=== PATIENT | male | born 1950 | race Hispanic/Latino ===

== ENCOUNTER → 2017-11-20 | Outpatient (CLI) | payer BC ==
[~2017-11-20] MED LIST: IOPAMIDOL 370 MG/ML 200 ML INFUS..BTL INJ ONE; SODIUM CHLORIDE 0.9% 50ML 50 ML ONE
[2017-11-20 17:57] LABS: BLOOD UREA NITROGEN 15 mg/dL (7-26); BUN/CREATININE RATIO 22 (6-25); CREATININE, SERUM 0.69 mg/dL (0.72-1.25); EST GLOMERULAR FILTRATION RATE > 60 ML/MIN (60-)
--- NOTE | 2017-11-20 18:52 | Diagnostic Imaging Report ---
PROCEDURE:CT PELVIS WITH CONTRAST COMPARISON:None. INDICATIONS:UNCERTAIN BEHAVIOR OF PROSTATE TECHNIQUE:CT of the pelvis was performed from the iliac crest through the proximal femurs after the intravenous administration of 100 cc of contrast. DLP: 298.28 mGY-cm FINDINGS: Prostate Gland: Measures 6.6 x 6.8 x 8.0 cm. It is heterogeneous in enhancement. No discrete mass. The median lobe is hypertrophied. No calcifications. Seminal Vesicles: Normal in morphology. Bladder: Mild bladder wall thickening without mass. No intraluminal calculi. Ureters: Distal ureters are collapsed. Pelvic Nodes:No lymphadenopathy Bowel:Visualized bowel is normal in diameter with normal wall thickness. Vessels: Mild ectasia of the iliac arteries without aneurysmal dilatation. No atherosclerotic calcifications. Bones:Mild degenerative changes of the hips. Mild to moderate degenerative changes of the lower lumbar spine. No lytic or blastic lesions. Soft tissues: Unremarkable. CONCLUSION: 1. Marked BPH. Pelvic MRI is a more sensitive modality to identify any suspicious prostate lesions. 2. Mild bladder wall thickening suggestive of outlet obstruction. 3. No pelvic lymphadenopathy. Dictated by: Sienna Ny M.D. on 11/20/2017 at 18:53 Electronically approved by: Sienna Ny M.D. on 11/20/2017 at 18:53
== END ==
LOC: CT 17:05
PROVIDERS: ATTEND Urology
DX: D40.0 Neoplasm of uncertain behavior of prostate (principal); R97.20 Elevated prostate specific antigen [PSA]
CPT/HCPCS: 36415; 72193; 82565; 84520; Q9967

== ENCOUNTER → 2017-11-23 | Outpatient (CLI) | payer BC ==
--- NOTE | 2017-11-23 19:02 | Diagnostic Imaging Report ---
Bone Scan, delayed phase INDICATION: 67 M with uncertain behavior of prostate, BPH and elevated PSA. COMPARISON: CT pelvis 11/20/2017 REPORT: Approximately 3 hours following intravenous administration of 27 mCi of Tc-99m MDP, delayed total body images in the anterior and posterior projections and selected spot images were obtained. Mildly increased tracer is seen at cervicothoracic junction and diffusely throughout the mid to lower thoracic spine, consistent with degenerative change. Foci of mildly increased tracer is seen in L4 and L5/S1 bilaterally. Otherwise, distribution of tracer activity is unremarkable throughout the skeletal system. No abnormal accumulation of tracer is seen in the soft tissues or urinary tract. The patient did not completely empty his bladder on void prior to imaging. IMPRESSION: No scan evidence of metastatic bone disease. Signed by: Dr. Ladi Ho M.D. on 11/23/2017 6:58 PM
== END ==
LOC: NM 09:41
PROVIDERS: ATTEND Urology
DX: D40.0 Neoplasm of uncertain behavior of prostate (principal)
CPT/HCPCS: 78306; A9503

== ENCOUNTER 2021-10-25 14:20 | Observation (INO) | payer MEDICARE ==
[~2021-10-25] VITALS: Ht 170.2 cm; Wt 81.6 kg
[2021-10-25] MEDS ORDERED: SODIUM CHLORIDE 0.9% 500ML 500 ML IV ONE (14:45)
[2021-10-25 14:56] LABS: BASOPHILS % 0.3 % (0.0-1.0); EOSINOPHILS # (AUTO) 0.2 (0.0-0.4); EOSINOPHILS % 3.3 % (0.0-6.0); HEMATOCRIT 41.8 % (38.2-49.6); HEMOGLOBIN 14.2 g/dL (14.0-18.0); LYMPHOCYTES # (AUTO) 1.3 (1.0-3.2); LYMPHOCYTES % 18.5 % (18.0-39.1); MEAN CORPUSCULAR HEMOGLOBIN 28.8 pg (28-32); MEAN CORPUSCULAR VOLUME 84.8 fL (81-99); MONOCYTES # (AUTO) 0.5 (0.2-0.8); MONOCYTES % 6.9 % (4.4-11.3); NEUTROPHILS # (AUTO) 4.9 (2.1-6.9); NEUTROPHILS % 70.7 % (38.7-80.0); PLATELET COUNT 196 x10e3/uL (140-360); RED BLOOD COUNT 4.93 x10e6/uL (4.3-5.7); RED CELL DISTRIBUTION WIDTH 12.9 % (11.7-14.4)
[2021-10-25 15:01] LABS: CLARITY,URINE CLEAR (CLEAR); COLOR,URINE YELLOW (YELLOW); KETONES,URINE NEGATIVE (NEGATIVE); LEUKOCYTE ESTERASE ,URINE NEGATIVE (NEGATIVE); NITRITE,URINE NEGATIVE (NEGATIVE); PROTEIN,URINE DIPSTICK NEGATIVE (NEGATIVE); URINE UROBILINOGEN 1 mg/dL (0.2 - 1)
[2021-10-25 15:13] LABS: INR 0.97; PROTHROMBIN TIME 13.8 seconds (11.9-14.5)
[2021-10-25 15:14] LABS: AMORPHOUS SEDIMENT,URINE FEW (FEW); BACTERIA,URINE RARE /HPF; PARTIAL THROMBOPLASTIN TIME 34.8 seconds (23.8-35.5)
[2021-10-25 15:16] LABS: ALBUMIN 3.8 g/dL (3.5-5.0); ALBUMIN/GLOBULIN RATIO 1.2 (0.8-2.0); ANION GAP 11.3 mmol/L (8-16); CALCIUM 9.6 mg/dL (8.4-10.2); CREATININE, SERUM 0.71 mg/dL (0.72-1.25); MAGNESIUM 1.6 MG/DL (1.3-2.1); POTASSIUM 3.3 mmol/L (3.5-5.1)
[2021-10-25] MEDS ORDERED: POTASSIUM CHLORIDE 20 MEQ TAB CR PO STA (15:20)
[2021-10-25] MEDS ORDERED: ASPIRIN 81 MG CHEW TAB PO ONE (15:30)
[2021-10-25 15:35] LABS: CREATINE KINASE MB 2.5 ng/mL (0-5.0); THYROID STIMULATING HORMONE 1.346 uIU/mL (0.350-4.940)
[2021-10-25] MEDS ORDERED: ONDANSETRON HCL INJ 2MG/ML 2ML 2 MG/ML VIAL IV PRN ×2 (15:45→18:00)
[2021-10-25] MEDS ORDERED: HYDRALAZINE HCL 20 MG/ML VIAL IV PRN (18:00)
[2021-10-25] MEDS ORDERED: ACETAMINOPHEN 325 MG TAB PO PRN (18:00)
[2021-10-25] MEDS ORDERED: POLYETHYLENE GLYCOL 3350 17 GM PACK PO PRN (18:00)
[2021-10-25] MEDS ORDERED: MAGNESIUM SULF 1GRAM/DEXTROSE 100 ML IV ONE ×2 (18:00→22:30)
[2021-10-25] MEDS ORDERED: TEMAZEPAM 7.5 MG CAP PO PRN (21:00)
[2021-10-25 21:50] VITALS: BP 135/73
[2021-10-25 22:30] VITALS: BP 135/73
[2021-10-26 01:14] VITALS: BP 123/66
[2021-10-26 04:38] VITALS: BP 119/68
[2021-10-26 04:56] LABS: BASOPHILS % 0.2 % (0.0-1.0); EOSINOPHILS # (AUTO) 0.2 (0.0-0.4); EOSINOPHILS % 4.5 % (0.0-6.0); HEMATOCRIT 39.3 % (38.2-49.6); HEMOGLOBIN 13.1 g/dL (14.0-18.0); LYMPHOCYTES # (AUTO) 1.1 (1.0-3.2); LYMPHOCYTES % 19.9 % (18.0-39.1); MEAN CORPUSCULAR HEMOGLOBIN 28.8 pg (28-32); MEAN CORPUSCULAR HGB CONC 33.3 g/dL (31-35); MEAN CORPUSCULAR VOLUME 86.4 fL (81-99); MONOCYTES # (AUTO) 0.5 (0.2-0.8); MONOCYTES % 8.6 % (4.4-11.3); NEUTROPHILS # (AUTO) 3.5 (2.1-6.9); NEUTROPHILS % 66.4 % (38.7-80.0); PLATELET COUNT 191 x10e3/uL (140-360); RED BLOOD COUNT 4.55 x10e6/uL (4.3-5.7)
[2021-10-26 05:18] LABS: ALBUMIN 3.3 g/dL (3.5-5.0); ALBUMIN/GLOBULIN RATIO 1.1 (0.8-2.0); ANION GAP 9.3 mmol/L (8-16); CALCIUM 9.1 mg/dL (8.4-10.2); CHOL/HDL RATIO 4.1 (3.9-4.7); CREATININE, SERUM 0.73 mg/dL (0.72-1.25); POTASSIUM 4.3 mmol/L (3.5-5.1)
[2021-10-26 05:33] LABS: PHOSPHORUS 3.2 MG/DL (2.3-4.7)
[2021-10-26 05:45] LABS: CREATINE KINASE MB 1.8 ng/mL (0-5.0)
[2021-10-26] MEDS ORDERED: FINASTERIDE5 MG PO (07:15)
[2021-10-26] MEDS ORDERED: FLOMAX PO (07:15)
[2021-10-26] MEDS ORDERED: FAMOTIDINE 20 MG TAB PO SCH (07:30)
[2021-10-26 08:24] VITALS: BP 127/73
[2021-10-26 08:27] VITALS: BP 127/73
[2021-10-26] MEDS ORDERED: ATORVASTATIN 40 MG TAB PO SCH (09:00)
[2021-10-26] MEDS ORDERED: DOCUSATE SODIUM 100 MG CAP PO SCH (09:00)
[2021-10-26] MEDS ORDERED: ASPIRIN 81 MG ENTERIC COATED PO SCH (09:00)
[2021-10-26 11:35] VITALS: BP 128/76
[2021-10-26] MEDS ORDERED: IOPAMIDOL 370 MG/ML 200 ML INFUS..BTL INJ ONE (11:48)
[2021-10-26] MEDS ORDERED: SODIUM CHLORIDE 0.9% 100 ML ONE (11:48)
[2021-10-26] MEDS ORDERED: TEMAZEPAM 15 MG CAP PO PRN (13:30)
[2021-10-26] MEDS ORDERED: ASPIRIN EC81 MG PO (14:43)
[2021-10-26] MEDS ORDERED: ACETAMINOPHEN325 M1 PO (14:43)
[2021-10-26] MEDS ORDERED: Atorvastatin PO (14:43)
[2021-10-26 15:03] LABS: CREATINE KINASE MB 1.4 ng/mL (0-5.0)
== END 2021-10-26 15:59 | disposition home or self-care (01) ==
LOC: ER 14:45 → ERHOLD 15:50 → MED/SURG3 21:04
PROVIDERS: ADMIT Internal Medicine; ATTEND Internal Medicine
DX: R20.0 Anesthesia of skin (principal); R01.1 Cardiac murmur, unspecified; Z20.822 Contact with and (suspected) exposure to COVID-19; E83.42 Hypomagnesemia; E87.6 Hypokalemia; N40.0 Benign prostatic hyperplasia without lower urinary tract symptoms; Z85.46 Personal history of malignant neoplasm of prostate; I70.0 Atherosclerosis of aorta; I65.23 Occlusion and stenosis of bilateral carotid arteries
CPT/HCPCS: 36415 ×2; 70450; 70496; 70498; 70551; 71045; 80053 ×2; 80061; 81001; 82550 ×2; 82553 ×2; 83036; 83735 ×2; 83880; 84100; 84443; 84484 ×2; 85025 ×2; 85610; 85730; 93005; 93306; 93880; 97161; 99284; G0378 ×2; J3475; J7040; J7050; Q9967; U0002

== ENCOUNTER 2025-05-16 23:59 | Emergency (ER) | payer MEDICARE ==
[~2025-05-16] VITALS: Ht 170.2 cm; Wt 81.6 kg
[~2025-05-16 23:59] MED LIST changes: +ACETAMINOPHEN325 M1 PO; +ASPIRIN EC81 MG PO; +Atorvastatin PO; +FINASTERIDE5 MG PO; +FLOMAX PO; -IOPAMIDOL 370 MG/ML 200 ML INFUS..BTL INJ ONE; -SODIUM CHLORIDE 0.9% 50ML 50 ML ONE
[2025-05-17 00:03] VITALS: TEMP 97.8
[2025-05-17] MEDS: ONDANSETRON HCL INJ 2MG/ML 2ML 2 MG/ML VIAL IV PRN (00:20)
[2025-05-17] MEDS: SODIUM CHLORIDE 0.9% 1000ML 1,000 ML IV STA (00:20)
[2025-05-17 00:42] LABS: BASOPHILS % 0.2 % (0.0-1.0); EOSINOPHILS % 0.7 % (0.0-6.0); LYMPHOCYTES % 11.8 % (18.0-39.1); MONOCYTES % 5.7 % (4.4-11.3); NEUTROPHILS % 81.0 % (38.7-80.0); RED CELL DISTRIBUTION WIDTH 12.4 % (11.7-14.4)
[2025-05-17 01:08] LABS: EST GLOMERULAR FILTRATION RATE 96.0 ML/MIN (>=60)
[2025-05-17] MEDS: DICYCLOMINE HCL 20 MG/2 ML VIAL IM ONE (01:09)
[2025-05-17] MEDS: ACETAMINOPHEN 1000 MG/100 ML IV STA (01:10)
[2025-05-17 01:33] LABS: LEUKOCYTE ESTERASE ,URINE NEGATIVE (NEGATIVE); PROTEIN,URINE DIPSTICK NEGATIVE (NEGATIVE)
[2025-05-17 01:34] LABS: URINE UROBILINOGEN 0.2 mg/dL (0.2 - 1)
[2025-05-17 01:51] LABS: EPITHELIAL CELLS,URINE FEW /LPF; WBC,URINE (MAN) 0-5 /HPF (0-5)
[2025-05-17 03:30] VITALS: PULSE 71; RESP 20
[2025-05-17] MEDS ORDERED: ONDANSETRON ODT4 MG PO (03:43)
[2025-05-17] MEDS ORDERED: DICYCLOMINE HCL20 MG PO (03:43)
[2025-05-17 04:25] VITALS: BP 116/66; PULSE 71; RESP 20; O2SAT 97
== END 2025-05-17 03:58 | disposition home or self-care (01) ==
LOC: ER 05-17 00:04
DX: R11.2 Nausea with vomiting, unspecified (principal); K52.9 Noninfective gastroenteritis and colitis, unspecified; R10.9 Unspecified abdominal pain; Z85.46 Personal history of malignant neoplasm of prostate; Z79.60 Long term (current) use of unspecified immunomodulators and immunosuppressants; Z87.442 Personal history of urinary calculi
CPT/HCPCS: 36415; 74177; 80053; 81001; 83690; 84484; 85025; 93005; 99284; J0131; J0500; J2405; J7030

== ENCOUNTER 2025-05-20 14:35 | Inpatient (IN) | payer MEDICARE ==
[~2025-05-20] VITALS: Ht 170.2 cm; Wt 81.6 kg
[~2025-05-20 14:35] MED LIST changes: +DICYCLOMINE HCL20 MG PO; +ONDANSETRON ODT4 MG PO
[2025-05-20 15:06] VITALS: TEMP 98.4
[2025-05-20 15:48] LABS: BASOPHILS % 0.1 % (0.0-1.0); EOSINOPHILS % 1.0 % (0.0-6.0); LYMPHOCYTES % 4.3 % (18.0-39.1); MONOCYTES % 8.4 % (4.4-11.3); NEUTROPHILS % 85.7 % (38.7-80.0); RED CELL DISTRIBUTION WIDTH 12.6 % (11.7-14.4)
[2025-05-20 15:57] LABS: LEUKOCYTE ESTERASE ,URINE NEGATIVE (NEGATIVE)
[2025-05-20 15:58] LABS: PROTEIN,URINE DIPSTICK 2+ (NEGATIVE); URINE UROBILINOGEN >=8 mg/dL (0.2 - 1)
[2025-05-20 16:10] LABS: EPITHELIAL CELLS,URINE FEW /LPF; EST GLOMERULAR FILTRATION RATE 102.0 ML/MIN (>=60); WBC,URINE (MAN) 0-5 /HPF (0-5)
[2025-05-20] MEDS: METOCLOPRAMIDE HCL 10 MG/2ML VIAL IV ONE (16:17)
[2025-05-20] MEDS: KETOROLAC TROMETHAMINE 30 MG/ML VIAL IV STA (16:17)
[2025-05-20] MEDS: SODIUM CHLORIDE 0.9% 1000ML 1,000 ML IV SCH (19:19)
[2025-05-20 20:00] VITALS: PULSE 73; RESP 16
[2025-05-20] MEDS ORDERED: LOPRESSOR25 MG PO (20:58)
[2025-05-20] MEDS ORDERED: FLOMAX0.4 MG PO (20:58)
[2025-05-20] MEDS ORDERED: NUBEQA300 MG PO (20:58)
[2025-05-20 22:10] VITALS: BP 119/66; PULSE 72; RESP 18; TEMP 97.6; O2SAT 93
[2025-05-20 22:37] VITALS: BP 119/66; PULSE 72; RESP 18; TEMP 97.6; O2SAT 93
[2025-05-20 22:54] VITALS: BP 119/66; PULSE 72; RESP 18; TEMP 97.6; O2SAT 93
[2025-05-21] VITALS (11 sets, daily range): BP systolic 105–135; BP diastolic 55–66; PULSE 42–84; RESP 17–20; TEMP 97.6–100; O2SAT 93–97
[2025-05-21 05:25] LABS: BASOPHILS % 0.3 % (0.0-1.0); EOSINOPHILS % 1.7 % (0.0-6.0); LYMPHOCYTES % 5.5 % (18.0-39.1); MONOCYTES % 9.8 % (4.4-11.3); NEUTROPHILS % 82.2 % (38.7-80.0); RED CELL DISTRIBUTION WIDTH 12.9 % (11.7-14.4)
[2025-05-21 05:51] LABS: INR 1.06
[2025-05-21 06:02] LABS: EST GLOMERULAR FILTRATION RATE 102.0 ML/MIN (>=60)
[2025-05-21] MEDS ORDERED: METOPROLOL TARTRATE 25 MG TAB PO SCH (12:00)
[2025-05-21] MEDS: ONDANSETRON HCL INJ 2MG/ML 2ML 2 MG/ML VIAL IV PRN (15:36)
[2025-05-21] MEDS: Morphine 4mg INJECTION 4 MG/ML INJ IV PRN (15:36)
[2025-05-21] MEDS: [UNRECOGNIZED DRUG - OTHER] PO SCH (17:00)
[2025-05-21] MEDS: TAMSULOSIN HCL 0.4 MG CAP PO SCH (21:24)
[2025-05-21] MEDS: METOPROLOL TARTRATE 25 MG TAB PO SCH (21:25)
[2025-05-22] VITALS (11 sets, daily range): BP systolic 102–131; BP diastolic 51–69; PULSE 54–91; RESP 15–20; TEMP 97.5–98.9; O2SAT 90–98
[2025-05-22 05:19] LABS: BASOPHILS % 0.1 % (0.0-1.0); EOSINOPHILS % 0.9 % (0.0-6.0); LYMPHOCYTES % 7.2 % (18.0-39.1); MONOCYTES % 10.0 % (4.4-11.3); NEUTROPHILS % 81.0 % (38.7-80.0); RED CELL DISTRIBUTION WIDTH 13.0 % (11.7-14.4)
[2025-05-22 06:05] LABS: EST GLOMERULAR FILTRATION RATE 106.0 ML/MIN (>=60)
[2025-05-22] MEDS: FINASTERIDE 5 MG TAB PO SCH (09:07)
[2025-05-22] MEDS ORDERED: LIDOCAINE HCL 2% LOCAL INJ 5 ML SDV VIAL INJ ONE (13:15)
[2025-05-22] MEDS ORDERED: ROCURONIUM BROMIDE 1 ML IV ONE (13:15)
[2025-05-22] MEDS ORDERED: PROPOFOL IV EMULSION 10 MG/ML 20 ML VIAL ONE (13:15)
[2025-05-22] MEDS ORDERED: FENTANYL CITRATE/PF 100MCG/2 ML INJ ONE (14:13)
[2025-05-22] MEDS ORDERED: DEXAMETHASONE SOD PHOS INJ 4 MG/ML SDV ONE (14:23)
[2025-05-22] MEDS ORDERED: ONDANSETRON HCL INJ 2MG/ML 2ML 2 MG/ML VIAL ONE (14:23)
[2025-05-22] MEDS ORDERED: SEVOFLURANE INHAL SOLN 250 ML PEN BTL ONE (14:23)
[2025-05-22] MEDS ORDERED: ACETAMINOPHEN 1000 MG/100 ML 100 ML IV ONE (14:23)
[2025-05-22] MEDS ORDERED: EPHEDRINE SULFATE INJ 50 MG/ML VIAL ONE (14:28)
[2025-05-22] MEDS ORDERED: SUGAMMADEX SODIUM 200 MG/2 ML VIAL IV ONE (14:54)
[2025-05-22] MEDS ORDERED: ACETAMINOPHEN 325 MG TAB PO PRN (15:15)
[2025-05-22] MEDS: SODIUM CHLORIDE 0.9% 1000ML 1,000 ML IV SCH (15:15)
[2025-05-22] MEDS: FENTANYL CITRATE/PF 100MCG/2 ML INJ ONE (15:48)
[2025-05-22] MEDS: HYDROCODONE/APAP 5MG-325MG TAB PO PRN (17:53)
[2025-05-23] VITALS (8 sets, daily range): BP systolic 104–112; BP diastolic 55–61; PULSE 62–73; RESP 16–21; TEMP 97.5–99; O2SAT 94–100
[2025-05-23 06:46] LABS: BASOPHILS % 0.6 % (0.0-1.0); EOSINOPHILS % 0.1 % (0.0-6.0); LYMPHOCYTES % 4.0 % (18.0-39.1); MONOCYTES % 4.8 % (4.4-11.3); NEUTROPHILS % 89.9 % (38.7-80.0); RED CELL DISTRIBUTION WIDTH 13.0 % (11.7-14.4)
[2025-05-23 07:36] LABS: EST GLOMERULAR FILTRATION RATE 100.0 ML/MIN (>=60)
[2025-05-23] MEDS ORDERED: SODIUM CHLORIDE 1 GM TAB PO SCH (11:30)
[2025-05-23 11:35] LABS: BAND NEUTROPHILS % (MANUAL) 5 %; LYMPHOCYTES % (MANUAL) 6 % (19-48); MONOCYTES % (MANUAL) 5 % (3.4-9.0); NEUTROPHILS % (MANUAL) 84 % (40-74); PLATELET ESTIMATE ADEQUATE; PLATELET MORPHOLOGY COMMENT NORMAL
[2025-05-23] MEDS: DOCUSATE SODIUM 100 MG CAP PO ONE (13:17)
[2025-05-23] MEDS: SODIUM CHLORIDE 1 GM TAB PO ONE (18:11)
[2025-05-24 06:30] VITALS: BP 107/61; PULSE 70; RESP 18; TEMP 97.8; O2SAT 96
[2025-05-24 06:55] VITALS: PULSE 63; RESP 22; O2SAT 97
[2025-05-24 08:00] VITALS: BP 120/61; PULSE 75; RESP 18; TEMP 99.1; O2SAT 97
[2025-05-24 08:05] VITALS: BP 120/64; PULSE 75
== END 2025-05-24 10:58 | disposition home or self-care (01) | DRG 418 ==
LOC: ER 14:39 → ERHOLD 18:02 → MED/SURG 20:41
PROVIDERS: ADMIT Internal Medicine; ATTEND Internal Medicine
PROC: 0DNU4ZZ Release Omentum, Percutaneous Endoscopic Approach (ICD-10-PCS; 2025-05-22)
PROC: 0FT44ZZ Resection of Gallbladder, Percutaneous Endoscopic Approach (ICD-10-PCS; principal; 2025-05-22 14:12)
DX: K80.01 Calculus of gallbladder with acute cholecystitis with obstruction (principal); E87.1 Hypo-osmolality and hyponatremia; K66.0 Peritoneal adhesions (postprocedural) (postinfection); I11.9 Hypertensive heart disease without heart failure; E78.5 Hyperlipidemia, unspecified; I48.0 Paroxysmal atrial fibrillation; I49.3 Ventricular premature depolarization; Z95.2 Presence of prosthetic heart valve; K59.00 Constipation, unspecified; N40.0 Benign prostatic hyperplasia without lower urinary tract symptoms; N28.1 Cyst of kidney, acquired; C61 Malignant neoplasm of prostate; R31.29 Other microscopic hematuria; R80.9 Proteinuria, unspecified; R81 Glycosuria; E29.1 Testicular hypofunction; D64.9 Anemia, unspecified; G89.29 Other chronic pain; E66.01 Morbid (severe) obesity due to excess calories; Z68.28 Body mass index [BMI] 28.0-28.9, adult; Z71.3 Dietary counseling and surveillance; Z71.81 Spiritual or religious counseling; Z92.21 Personal history of antineoplastic chemotherapy; Z92.3 Personal history of irradiation; Z87.440 Personal history of urinary (tract) infections; Z79.890 Hormone replacement therapy; Z79.899 Other long term (current) drug therapy; Z79.82 Long term (current) use of aspirin
CPT/HCPCS: 36415; 74181; 76705; 80053; 81001; 83690; 85025; 85610; 85730; 88304; 94799; 99284; J1100; J1885; J2003; J2270; J2405; J2470; J2543; J2765; J7030